=== PATIENT | male | born 1985 | race Caucasian/White ===

== ENCOUNTER 2016-10-17 20:34 | Emergency (ER) | payer BC ==
[~2016-10-17 20:34] MED LIST: ATIVAN0.5 M1 PO; INHALER; LEXAPRO5 M1 PO; SYMBICORT 160-1 PUFF INH; VENTOLIN HFA18 G2 PO
[2016-10-17] MEDS ORDERED: WELLBUTRIN SR150 M2 PO (20:43)
[2016-10-17] MEDS ORDERED: ALLEGRA ALLERG180 M1 PO (20:44)
[2016-10-17] MEDS ORDERED: [UNRECOGNIZED DRUG - OTHER] PO (20:44)
[2016-10-17] MEDS ORDERED: FLONASE ALLERG9.9 ML (20:45)
[2016-10-17 21:50] LABS: BASO % 0.4 % (0-2); EOS % 1.8 % (0-7); EOSINOPHIL ABSOLUTE COUNT 0.1 tho/cmm (0.0-0.7); HGB-HEMOGLOBIN 14.6 gm/dl (13.5-17.0); IMMATURE GRANULOCYTES ABSOLUTE 0.01 tho/cmm (0-0.03); IMMATURE GRANULOCYTES PERCENT 0.1 % (0-0.3); LYMPH % 41.6 % (20-45); LYMPH ABSOLUTE COUNT 2.8 tho/cmm (0.8-4.5); MCHC MEAN CORPUSCULAR HGB CONC 33.2 % (32.0-36.0); MCV (MEAN CELL VOLUME) 87.5 fl (82.0-96.0); MEAN PLATELET VOLUME 10.6 cmc (9.4-12.4); MONO % 7.4 % (0-12); MONOCYTE ABSOLUTE COUNT 0.5 tho/cmm (0.0-1.2); NEUTROPHIL ABSOLUTE COUNT 3.3 tho/cmm (1.6-8.0); NEUTROPHIL-AUTOMATED 3.3 tho/cmm (1.6-8.0); NEUTROPHILS % 48.7 % (40-80); PLATELET COUNT 212 tho/cmm (150-450); RED BLOOD COUNT 5.03 mil/cmm (4.40-5.70); RED CELL DISTRIBUTION WIDTH 12.8 % (12.4-16.4); WHITE BLOOD COUNT 6.7 tho/cmm (4.0-10.0)
[2016-10-17 22:06] LABS: ALB/GLOB RATIO 1.1 (0.8-2.0); ALBUMIN 3.7 g/dl (3.5-5.0); ALKALINE PHOSPHATASE 77 U/L (33-138); ALT/SGPT 24 U/L (12-78); ANION GAP 9 mmol/L (0-20); AST/SGOT 15 U/L (10-40); BILIRUBIN,TOTAL 0.3 mg/dl (0.0-1.5); BLOOD UREA NITROGEN 16 mg/dl (6-24); CALCIUM 8.9 mg/dl (8.5-10.5); CARBON DIOXIDE-VENOUS 29 mmol/L (22-32); CHLORIDE 107 mmol/l (96-110); CREATININE 0.93 mg/dl (0.60-1.30); GLUCOSE 106 mg/dL (70-110); LIPASE 130 U/L (73-393); POTASSIUM 3.6 mmol/L (3.7-5.1); SODIUM 141 mmol/L (135-145); eGFR VALUE FOR BLACK >90 mL/Min
[2016-10-17] MEDS ORDERED: PROTONIX40 M2 PO (22:31)
[2016-10-18] MEDS ORDERED: EPIPEN 2-P0.3 MG/0.3 SC (18:17)
[2017-01-02] MEDS ORDERED: VIIBRYD10 M1 PO (00:05)
== END 2016-10-17 23:02 ==
LOC: EDMED 20:34
PROVIDERS: Emergency Medicine
DX: K29.70 Gastritis, unspecified, without bleeding (principal); J45.909 Unspecified asthma, uncomplicated; F41.9 Anxiety disorder, unspecified; F32.9 Major depressive disorder, single episode, unspecified; Z87.891 Personal history of nicotine dependence; Z79.899 Other long term (current) drug therapy

== ENCOUNTER 2016-10-18 17:43 | Emergency (ER) | payer BC ==
[~2016-10-18 17:43] MED LIST changes: +ALLEGRA ALLERG180 M1 PO; +FLONASE ALLERG9.9 ML; +PROTONIX40 M2 PO; +WELLBUTRIN SR150 M2 PO; +[UNRECOGNIZED DRUG - OTHER] PO
[2016-10-18] MEDS ORDERED: EPIPEN 2-P0.3 MG/0.3 SC (18:17)
[2017-01-02] MEDS ORDERED: VIIBRYD10 M1 PO (00:05)
== END 2016-10-18 19:30 ==
LOC: EDMED 17:43
DX: T78.1XXA Other adverse food reactions, not elsewhere classified, initial encounter (principal)
CPT/HCPCS: J0171